=== PATIENT | female | born 1960 | race Caucasian/White ===

== ENCOUNTER 2016-09-15 13:44 | Emergency (ER) | payer OTHER ==
[2016-09-15 13:52] VITALS: BP 118/75; PULSE 86; TEMP 99.3; BMI 22.1
--- NOTE | 2016-09-15 14:05 | PDOC ---
History of Present Illness - General Chief Complaint: Injury Stated Complaint: LEFT 4TH FINGER LAC Time Seen by Provider: 09/15/16 13:49 History Source: Patient Exam Limitations: No Limitations - History of Present Illness Initial Comments: 09/15/16 14:02 56y M hx of htn presents with L 4th finger injury. The patient was cleaning up a broken glass this weakend when she got cut and tinks it may be possible a shard of glass may have lacerated her. The pt enies any numbnes/tingling/ weakness. no other injuries. Past History - Past Medical History Allergies/Adverse Reactions: Allergies Allergy/AdvReac Type Severity Reaction Status Date / Time sulfamethoxazole Allergy Verified 09/15/16 13:45 [From Bactrim] trimethoprim [From Bactrim] Allergy Verified 09/15/16 13:45 Home Medications: Ambulatory Orders Calcium Carbonate/Vitamin D3 [Calcium 600+D Softgel] 1 each PO DAILY 10/29/15 Ramipril 5 mg PO DAILY 10/29/15 HTN: Yes - Surgical History Abdominal Surgery: Yes (HERNIA REPAIR) - Immunization History Td Vaccination: (2010) - Psycho/Social/Smoking Cessation Hx Anxiety: No Suicidal Ideation: No Smoking Status: No Smoking History: Never smoked Have you smoked in the past 12 months: No Number of Cigarettes Smoked Daily: 0 Hx Alcohol Use: No Drug/Substance Use Hx: No Review of Systems - Review of Systems Able to Perform ROS?: Yes Comments:: 09/15/16 14:03 Extremiity: L ring finger pain / laceration, no numbness/tingling weakness *Physical Exam - Vital Signs Last Vital Signs Temp Pulse Resp BP Pulse Ox 99.3 F 86 18 118/75 99 09/15/16 13:45 09/15/16 13:45 09/15/16 13:45 09/15/16 13:45 09/15/16 13:45 - Physical Exam Comments: 09/15/16 14:03 GENERAL: The patient is awake, alert, and fully oriented, Nontoxic - in no acute distress. EXTREMITIES: L ring finger - superficial laceraton on medial aspect of L ring finger no fb noted, no active bleeding, erythema, mild tender to palpation, no obviou fb noted. 09/15/16 14:06 Procedures - Consent Consent obtained: Verbal - Laceration/Wound Repair Left Medial 4th digit Wound Length: to 2.5 cm Wound Explored: clean Wound's Depth, Shape: superficial Wound Repaired With: Dermabond Medical Decision Making - Medical Decision Making 09/15/16 14:05 will obtain xray to r/o fb tetanus UTD (<5 years) 09/15/16 14:41 no radio opaque fb noted on xray the pts laceration was close with dermabond as pt will be going on a hiking trip next week. return precautions were discussed I discussed the physical exam findings, ancillary test results and final diagnoses with the patient. I answered all of the patient's questions. The patient was satisfied with the care received and felt comfortable with the discharge plan and treatment plan. The patient will call their primary care physician within 24 hours to arrange follow-up and will return to the Emergency Department with any new, persistent or worsening symptoms. *DC/Admit/Observation/Transfer Diagnosis at time of Disposition: Laceration of ring finger Qualifiers: Encounter type: initial encounter Damage to nail status: without damage Foreign body presence: without foreign body Laterality: left Qualified Code(s): S61.215A - Laceration without foreign body of left ring finger without damage to nail, initial encounter - Discharge Dispostion Condition at time of disposition: Stable Admit: No - Patient Instructions Printed Discharge Instructions: DI for Laceration Repair With Dermabond Additional Instructions: Keep the area clean and dry. Do not put any ointments/lotions/bacitracin over the wound as it will cause premature deterioration of the glue. You may wash gently with soap and water . Print Language: QATARI
== END 2016-09-15 14:53 | disposition home or self-care (01) ==
LOC: FER 13:44
PROC: 0HQGXZZ Repair Left Hand Skin, External Approach (ICD-10-PCS; principal; 2016-09-15)
DX: S61.215A Laceration without foreign body of left ring finger without damage to nail, initial encounter (principal); W25.XXXA Contact with sharp glass, initial encounter; Y93.G1 Activity, food preparation and clean up; Y92.9 Unspecified place or not applicable
CPT/HCPCS: 73140-TC-LT; 99283-25